=== PATIENT | male | born 1960 | race Caucasian/White ===

== ENCOUNTER 2025-06-16 06:56 | Outpatient (RCR) | payer OTHER, SELFPAY | END 2025-06-16 23:59 | disposition home or self-care (01) | LOC: RPT 06:56 | PROVIDERS: ATTENDING PHYSICIAN Nurse Practitioner Adult Health; FAMILY PHYSICIAN Internal Medicine | DX: C07 Malignant neoplasm of parotid gland (principal); I89.0 Lymphedema, not elsewhere classified; L59.8 Other specified disorders of the skin and subcutaneous tissue related to radiation; R29.3 Abnormal posture | CPT/HCPCS: 97110; 97140; 97162; 97530 ==

== ENCOUNTER 2025-07-14 06:28 | Outpatient (RCR) | payer OTHER, SELFPAY | END 2025-07-14 23:59 | disposition home or self-care (01) | LOC: RPT 06:28 | PROVIDERS: ATTENDING PHYSICIAN Nurse Practitioner Adult Health; FAMILY PHYSICIAN Internal Medicine | DX: C07 Malignant neoplasm of parotid gland (principal); I89.0 Lymphedema, not elsewhere classified; L59.8 Other specified disorders of the skin and subcutaneous tissue related to radiation; R29.3 Abnormal posture | CPT/HCPCS: 97110; 97140; 97530 ==